=== PATIENT | female | born 1945 | race Caucasian/White ===

== ENCOUNTER 2023-08-25 10:29 | Emergency (ER) | payer BC, SELFPAY ==
[2023-08-25 10:31] VITALS: BP 162/83
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
== END 2023-08-25 13:19 | disposition home or self-care (01) ==
LOC: EMR 10:29
PROVIDERS: EMERGENCY PHYSICIAN Emergency Medicine; FAMILY PHYSICIAN Family Medicine; REFERRING PHYSICIAN Family Medicine
DX: M43.6 Torticollis (principal); G89.29 Other chronic pain; M54.2 Cervicalgia; I10 Essential (primary) hypertension; E11.9 Type 2 diabetes mellitus without complications
CPT/HCPCS: 99283; 72050

== ENCOUNTER 2023-09-05 06:16 | Day surgery (SDC) | payer BC, SELFPAY ==
--- NOTE | 2023-09-03 12:36 | PTCARENOTE ---
Verified with Chloe Billy @ Dr. Hinojosa office that an accucheck is to be done bedside vs FBS.
[2023-09-05] VITALS (8 sets, daily range): BP systolic 135–161; BP diastolic 73–89; BMI 20.8
[2023-09-05] MEDS: NORMOSOL-R 1000 IV (09:30)
[2023-09-05] MEDS: TYLENOL 1000 MG PO (09:30)
[2023-09-05 09:40] LABS: Glucose - Point of Care 161 mg/dl (70-99)
[2023-09-05 12:28] LABS: Glucose - Point of Care 99 mg/dl (70-99)
--- NOTE | 2023-09-05 22:58 | W.IMMPOSTOP ---
Surgical Immed Post Op Note
-
Primary Surgeon: Jian Senior, DO
Assisting Surgeon: none
Pre-op Diagnosis: Postmenopausal bleeding; thickened endometrial lining
Post-op Diagnosis: same; questionable small polyp
Procedure Performed: ultasound guided hysteroscopy D&C, myosure
Anesthesia Type: general LMA Dr. Duran
Specimen / Cultures: 1. endocervical curettings 2. endometrial curettings
Estimated Blood Loss: 1ml
Fluid deficit: 45 ml
Complications: none
Operative Findings: Uterus sounded to 5.5 cm, endometrial lining is thin, bilateral tubal ostia seen. Very small raised area of tissue ? small cyst vs polyp at fundus and also left side uterine body wall.
Counts correct times 2.
Stable to recovery.
== END 2023-09-05 13:50 | disposition home or self-care (01) ==
LOC: SDS 06:16
PROVIDERS: ATTENDING PHYSICIAN Obstetrics & Gynecology
DX: N72 Inflammatory disease of cervix uteri (principal); N95.0 Postmenopausal bleeding; R93.89 Abnormal findings on diagnostic imaging of other specified body structures
CPT/HCPCS: 58558; 88305; 76998; 82962; 86850; 86900; 86901

== ENCOUNTER 2023-09-06 22:04 | Inpatient (IN) | payer BC, SELFPAY ==
[2023-09-06] VITALS (9 sets, daily range): BP systolic 108–135; BP diastolic 47–73; BMI 21.2; BMI 20.8
[2023-09-06 15:39] LABS: % Basophils 0.2 % (0-2); % Immature Granulocytes 0.6 % (0-0.5); % Lymphocytes 4.8 % (20.5-51.1); % Neutrophils 92.4 % (42.2-75.2); Absolute Basophils 0.1 10^3/uL (0-0.2); Absolute Immature Granulocytes 0.2 10^3/uL (0-0.05); Absolute Lymphocytes 1.2 10^3/uL (1.2-3.4); Absolute Monocytes 0.5 10^3/uL (0.1-0.6); Absolute Neutrophils 23.6 10^3/uL (1.4-6.5); Hematocrit 29.9 % (37.0-47.0); Hemoglobin 10.4 g/dL (12.0-16.0); Mean Corp Hgb Conc. 34.8 g/dL (33.0-37.0); Mean Corpuscular Hgb 32.1 pg (27.0-31.0); Mean Corpuscular Volume 92.3 fL (81.0-99.0); Mean Platelet Volume 11.6 fL (7.4-10.4); Nucleated Red Blood Cells % 0 %; Platelet Count 200 10^3/uL (130-400); Red Blood Cell Count 3.24 10^6/uL (4.20-5.40); Red Cell Dist. Width 13.3 % (11.5-14.5); White Blood Cell Count 25.6 10^3/uL (4.8-10.8)
[2023-09-06 15:53] LABS: ALT (SGPT) 25 U/L (0-35); AST (SGOT) 27 U/L (14-36); Alkaline Phosphatase 123 U/L (38-126); Blood Urea Nitrogen 34 mg/dl (7-17); Calcium 9.2 mg/dl (8.4-10.2); Carbon Dioxide 24 mmol/L (22-30); Chloride 103 mmol/L (98-107); Glucose 274 mg/dl (70-99); Lipase 189 U/L (23-300); Potassium 3.9 mmol/L (3.5-5.1); Sodium 135 mmol/L (135-145); Total Bilirubin 0.6 mg/dl (0.2-1.3); Total Protein 6.9 g/dl (6.3-8.2); eGFR > 60.00
--- NOTE | 2023-09-06 18:30 | ED.GENMED ---
History of Present Illness
General
Chief Complaint: Abdominal Symptoms
Source: patient
Exam Limitations: none
Time Seen by Provider: 09/06/23 17:56
Travel History
Have you had any contact with someone who has COVID-19?: No
Do you have any symptoms of coronavirus? Fever > 100 degrees, chills, cough, shortness of breath, sore throat, loss of taste or smell, muscle aches, or headache?: No
History of Present Illness
History of Present Illness:
78-year-old female presents for evaluation for onset of shaking chills nausea and episode of vomiting. She had D&C and endometrial biopsy yesterday. She was doing well postoperatively and had breakfast this morning however after lunch she vomited
up her breakfast. She notes currently she feels quite fatigued. She denies abdominal pain chest pain cough or shortness of breath. Temperature at home was 99.9 although the patient taking Tylenol for her pain postoperatively. No symptoms
urinating. She notes minimal spotting if any from the surgery. No other complaints at this time
Past History
Past History
ED Past Medical History: HTN and NIDDM
ED Past Surgical History: Gynecological and Tonsilectomy
Social History
Tobacco: Non-smoker
Alcohol: None
Drug: None
Personal:
Living: with family
Phy Exam
Physical Exam
Physical Exam:
General: Well-appearing female no acute respiratory distress
HEENT: Normocephalic atraumatic
Heart: Regular rate and rhythm no murmurs
Lungs: Clear to auscultation bilaterally no wheezing
Abdomen is soft nontender
Extremities no cyanosis or edema
Course
Orders/Labs/Results
Orders:
Orders
09/06/23 15:16
Complete Blood Count/With Diff Urgent
Comprehensive Metabolic Panel Urgent
Lipase Urgent
09/06/23 18:23
0.9% Sodium Chloride 1000 ml [Nss] 1,000 ml IV BOLUS
09/06/23 18:27
Lactic Acid Q4H
Comment: CANCEL 2nd LACTIC ACID IF 1st LACTIC ACID IS LESS THAN 2
Blood Culture Q30M
MARIAJOSE Source: Blood/Venous
Specimen Description:
Blood Culture Q30M
MARIAJOSE Source: Blood/Venous
Specimen Description:
09/06/23 18:46
CT Abd/pelvis W Iv Cont Urgent
Comment:
Reason For Exam: fever, recent surgery, eval for perforation
09/06/23 20:00
Piperacillin/Tazo 3.375 Gram [Zosyn] 3.375 gram in 50 ml IV Q6H
09/06/23 20:24
Urinalysis Urgent
Date Specimen was Collected: 09/06/23
Time Specimen was Collected: 20:20
Urine Microscopic Urgent
Date Specimen was Collected: 09/06/23
Time Specimen was Collected: 20:20
Urine Culture Urgent
MARIAJOSE Source: Urine
Specimen Description:
Obtained by: Random
Date Specimen was Collected: 09/06/23
Time Specimen was Collected: 20:20
Abnormal Lab Results
09/06/23 09/06/23
15:16 20:24
WBC 25.6 H 10^3/uL
(4.8-10.8)
RBC 3.24 L 10^6/uL
(4.20-5.40)
Hgb 10.4 L g/dL
(12.0-16.0)
Hct 29.9 L %
(37.0-47.0)
MCH 32.1 H pg
(27.0-31.0)
MPV 11.6 H fL
(7.4-10.4)
Abs Immat Gran (auto) 0.2 H 10^3/uL
(0-0.05)
Absolute Neuts (auto) 23.6 H 10^3/uL
(1.4-6.5)
Immature Gran % 0.6 H %
(0-0.5)
Neutrophils % 92.4 H %
(42.2-75.2)
Lymphocytes % 4.8 L %
(20.5-51.1)
BUN 34 H mg/dl
(7-17)
Glucose 274 H mg/dl
(70-99)
Urine Ketones 1+ A
(Negative)
Urine Occult Blood 4+ A
(Negative)
Urine Nitrite Positive A
(Negative)
Ur Leukocyte Esterase 2+ A
(Negative)
Urine Glucose 3+ A
(Negative)
09/06/23 15:16
09/06/23 15:16
Vital Signs
Initial and Last Documented VS:
Initial Vital Signs
Temp
97.9 F
09/06/23 15:07
Last Documented Vital Signs
Temp Pulse Resp BP Pulse Ox
97.9 F 95 18 128/57 99
09/06/23 15:07 09/06/23 20:30 09/06/23 20:30 09/06/23 20:22 09/06/23 20:12
MDM/Problems Addressed
Differential Diagnosis Includes:
Rigors with vomiting. Slightly tachycardic. She has leukocytosis with a white blood cell count of 25,000. Consider underlying infectious source. Will check urine blood cultures labs. Recent surgery. Have to consider potential for perforation.
CT pending. Lungs are clear 100% on room air not coughing. Do not suspect pneumonia
*Critical Care Note
Total Time (30-74mins, 75-104mins- exclusive of procedures): Not Applicable
Update Note
Update Note:
Discussed findings with SOLUTION MAKE UP OPERATOR who is currently in the room. Obtain CT scan of abdomen to evaluate for infectious source or perforation. CT shows enteritis but no perforation. She was given a liter of fluid here started on Zosyn. Urinalysis
ordered. Mid to hospitalist
ED Attending Note
-
Portions of this chart may have been created with voice recognition software.� Occasional wrong word or��sound alike� substitutions may have occurred due to the inherent limitations of voice recognition software.
Discharge Plan
Departure
Patient Disposition: Admit
Date of Disposition: 09/06/23
Time of Disposition: 20:45
Admit to: Telemetry
Presentation/result/management discussed w/ accepting MD/DO: Hospitalist
Discharge Problem:
Enteritis
Prescriptions:
No Action
aspirin 81 MG tablet,chewable
81 mg PO DAILY
coQ10 (ubiquinol) 100 MG capsule
100 mg PO DAILY
atorvastatin 20 MG tablet
20 mg PO QPM Qty: 90 3RF
nitroglycerin 0.4 MG tablet, sublingual
0.4 mg sublingual [id number] PRN (Reason: chest pain) Qty: 25 2RF
glipizide [Glucotrol XL] 10 mg Tablet Extended Release 24hr
10 mg PO BID
repaglinide [Prandin] 0.5 mg Tablet
0.5 mg PO TID
cholecalciferol (vitamin D3) [Vitamin D3] 125 mcg (5,000 unit) Tablet
125 mcg PO DAILY
dapagliflozin propanediol [Farxiga] 5 mg Tablet
5 mg PO DAILY
Fish Oil
1 dose PO DAILY
misoprostol 200 mcg Tablet
PO DIRECTED
Patient Comments:
Patient took one on 09/04/23 @ 20:00.
Referrals:
Vipin Rodriguez DO [Family Provider] -
Interventions
Interventions:
*Risk Screen - Suicide Last Done: 09/06/23 18:37
*General Assessment Last Done: 09/06/23 18:37
*Neglect/Abuse Screening Last Done: 09/06/23 18:37
*ED COVID-19 Vaccine History Last Done: 09/06/23 15:09
QA-Wvsjvy-Gvujvnzcda Assessment Last Done: 09/06/23 18:37
Discharge Date and Time
Print Language: THAI
[2023-09-06] MEDS: NSS 1000 IV ×2 (18:38→23:09)
[2023-09-06 18:52] LABS: Lactic Acid 1.7 mmol/L (0.7-2.0)
[2023-09-06] MEDS: ZOSYN 50 IV (20:21)
[2023-09-06 20:39] LABS: Urine Albumin Trace (Neg - Trace); Urine Bilirubin Negative (Negative); Urine Character Slightly Cloudy (Clear); Urine Color Straw; Urine Glucose 3+ (Negative); Urine Ketone 1+ (Negative); Urine Leukocyte 2+ (Negative); Urine Nitrite Positive (Negative); Urine Occult Blood 4+ (Negative); Urine Urobilinogen Negative (Neg - 1+)
[2023-09-06 20:51] LABS: Urine Squamous Cell 0-2 /LPF (Few)
[2023-09-06 20:52] LABS: Urine Bacteria Moderate (Negative)
[2023-09-06 20:53] LABS: Urine White Cell 30-40 /HPF (0-5)
--- NOTE | 2023-09-06 21:10 | HPS.HSE ---
Family Physician
-
Family Physician: Vipin Rodriguez
Chief Complaint
-
Rigors and vomiting
History of Present Illness
HPI
78F seen at ER for reported T 99 at home with new onset of rigors and vomiting today.
On 09/05/23 , she D&C and endometrial biopsy at . She notes minimal spotting if any from the surgery.
USOH till lunch, she tolerated breakfast this morning, than acute onset of vomiting breakfast around lunch time.
ROS:
No abdominal pain, chest pain cough or shortness of breath.
No urinary symptoms
Medical History
Past Medical History
Past Medical History: Reports HTN, Hypercholesterolemia and NIDDM
Past Surgical History: Reports Gynocological and Tonsilectomy
Social History
Tobacco: Non-smoker
Alcohol: None
Drug: None
Personal:
Living: With Family
Family History
Family History: Not pertinent
Allergies / Home Medications
Allergies reflects when Allergies were last updated in [facility].
Home Medications with original date entered in [facility]
Allergy/Medication List:
Allergies
Allergy/AdvReac Type Severity Reaction Status Date / Time
ciprofloxacin Allergy Rash Verified 09/06/23 15:09
Home Medications
aspirin 81 mg chewable tablet 81 mg PO DAILY 05/10/16
atorvastatin 20 mg tablet 20 mg PO QPM #90 tabs 05/10/16
coQ10 (ubiquinol) 100 mg capsule 100 mg PO DAILY 05/10/16
nitroglycerin 0.4 mg sublingual tablet 0.4 mg sublingual [id number] PRN chest pain #25 tabs 05/10/16
Fish Oil 1 dose PO DAILY 09/03/23
cholecalciferol (vitamin D3) 125 mcg (5,000 unit) tablet (Vitamin D3) 125 mcg PO DAILY 09/03/23
dapagliflozin propanediol 5 mg tablet (Farxiga) 5 mg PO DAILY 09/03/23
glipizide 10 mg tablet, extended release 24 hr (Glucotrol XL) 10 mg PO BID 09/03/23
repaglinide 0.5 mg tablet 0.5 mg PO TID 09/03/23
misoprostol 200 mcg tablet mcg PO DIRECTED 09/05/23
Review of Systems
-
Constitutional: Reports Fatigue and Chills
EENT: Reports No Symptoms
Respiratory: Reports No Symptoms
Cardiac: Reports No Symptoms
Abdomen/GI: Reports Vomiting
: Reports No Symptoms; Denies Dysuria, Frequency or Flank Pain
Musculoskeletal: Reports No Symptoms
Skin: Reports No Symptoms
Neurological: Reports No Symptoms
Endocrine: Reports No Symptoms
Hematologic/Lymphatic: Reports No Symptoms
Psych: Reports No Symptoms
Physical Exam
Vital Signs
Vital Signs
Temp Pulse Resp BP Pulse Ox
97.9 F 95 18 128/57 99
09/06/23 15:07 09/06/23 20:30 09/06/23 20:30 09/06/23 20:22 09/06/23 20:12
Physical Exam
General: No Apparent Distress, Comfortable, Conversant and Other; No Fever
HEENT: NormoCephalic, Anicteric and Moist mucous membranes
Respiratory: Clear; No Wheezes or Rales
Cardiac: S1/S2 and Regular Rhythm; No Murmur
Breast: Deferred by me
GI: Soft, Non Distended, Normal Bowel Sounds and Tender (mildly tender lower abdomen )
Rectal: Deferred by Provider
Genito-urinary: Deferred by me
Musculoskeletal: No Edema
Skin: Warm and Dry; No Rash or Jaundice
Neuro: AO x 3 and Nonfocal/grossly intact
Psych: Calm
Laboratory Results
-
09/06/23 15:16
09/06/23 15:16
Laboratory Results
Lactic Acid Cancelled 09/06/23 22:30
Total Bilirubin 0.6 mg/dl (0.2-1.3) 09/06/23 15:16
AST 27 U/L (14-36) 09/06/23 15:16
ALT 25 U/L (0-35) 09/06/23 15:16
Alkaline Phosphatase 123 U/L (38-126) 09/06/23 15:16
Lipase 189 U/L (23-300) 09/06/23 15:16
Data Reviewed
-
CT Scan: Report Reviewed by me
Lab Data: Labs Reviewed by me
Old Records: Reviewed
Impression/Plan
-
Reviewed VS: Afebrile otherwise unremarkable
Data
WCC 25s
Hgb 10.4
BUN 34
Cr 0.7
eGFR > 60
BG 275
nl LFTs
UA: POS Nitrites, POS LE, WCC 30-40
UCx , BCx sent
CT AP w IV contrast
1. No CT evidence for acute uterine perforation.
2. 1.6 cm calcified leiomyoma in the uterine fundus.
3. 2.8 cm simple cyst in the left adnexa.
4. Moderate distention of the urinary bladder.
5. Mild distention, wall thickening, and mucosal enhancement throughout ileal small bowel loops in the central lower abdomen and pelvis. Diagnostic possibilities are (1) a postoperative ileus or (2) an acute infectious or inflammatory enteritis.
6. Severe calcific atherosclerotic plaque in the proximal left renal artery causing a greater than 70% diameter stenosis.
7. Severe calcific atherosclerotic plaque in the abdominal aorta.
8. 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
9. Moderate distention of the portal venous system consistent with portal hypertension.
10. Small hiatal hernia.
11. Small to moderate-sized pericardial effusion.
01/19/18 TTE
Normal left ventricular size, wall thickness and systolic function.
Normal right ventricular size and function.
No significant valvular disease.
Trivial pericardial effusion without evidence of hemodynamic compromise.
Overall, Normal echocardiogram.
Compared to the previous echo 01/03/17 the pericardial effusion is less prominent (was 0.4-1.0 cm).
No prio hospitalist admission
ASSESSMENT & PLAN
Pending Rx reconciliation
CT questions of an acute infectious or inflammatory enteritis DDX : viral ?
Associated with onset of rigors , afebrile at ER
Vomiting plus Leucocytosis : No diarrhea, No nausea
S/p endometrial biopsy with d/c yesterday by Dr. Macario
- f/u T, WCC
- f/u UCx and BCx
- Empiric Zosyn
- IVF
- Clear and adat
Significant pyuria without any urinary symptoms
Moderate distention of the urinary bladder
- Held Dapagliflozin
- f/u UCx
- Bladder scan
On 09/05/23 , she D&C and endometrial biopsy at .
No CT evidence for acute uterine perforation.
- Gynae evaluated at ER
DMT2
- Held Glipizide
- Dapagliflozin due to abn UA
- cont. Prandin
- add ISS low
HLD
-cont Statin
- Held ASA due to Enteritis
DVT Px: SCD
Code: Full
IP MS
--- NOTE | 2023-09-06 22:53 | CON.MD ---
Consultation - Medical
-
78 yo MP female presented to ER [facility] after having uncontrollable shaking and feeling like she could not get warm. Had temp 100 at home. HX significant for hysteroscopy D&C yesterday performed under ultrasound guidance by me for postmenopausal
bleeding and thickened endometrial lining. Surgery was uneventful. Findings suggestive of tiny endometrial cyst vs tiny polyp but otherwise unremarkable. She denies any heavy bleeding or urinary complaints. Had some nausea and vomiting earlier
today, no diarrhea. She is diabetic. Accompanied by her , daughter, Dr. Nicky Torres, daughter Marsha and son-in-law Dr. Zheng Torres.
PMH: diabetes, postmenopausal bleeding, uterine prolapse, cystocele, rectocele, cardiac stent placement for CAD
PSH: hysteroscopy D&C x 3, cardiac stent placement, hyperlipdemia
ALL cipro
Meds:
lipitor 20mg daily
glipizide 10mg daily
aspirin 81 mg daily
farxiga 10mg daily
Sochx: , neg Tobacco, etoh, drug use
Famhx; noncontributory
ROS: does not add
PE: VSS Temp 98.4 pulse 105
abd: soft + mild tenderness diffusely no rebound or rigidity
pelvic exam not performed in ED
CT imaging: severe calcific atherosclerotic plaque in proximal left renal artery with >70% stenosis, aneurysm dilatation of distal celiac artery. Small hiatal hernia. Mild fluid distension of second and proximal third portions of duodenum. Small
pericardial effusion.
Pelvis: mild fluid distension of small bowel loops in lower abdomen and pelvis. Mild mucosal thickening throughout the distended ileal small bowel loops. Appendix and termial ilium normal appearance. Moderate fecal material in rectum and transverse
and descending colon.
No CT evidence for acute uterine perforation. 1.6 cm calcified fibroid. 2.8cm left adnexal cyst.
WBC 25K hgb 10.4
lactic acid normal
urinalysis +nitrites, moderate bacteria
Impression:
1. POD#1 s/p hysteroscopy D&C performed due to recent postmenopausal bleeding-path pending.
2. Enteritis vs postop ileus- inflammatory or infectious possible.
3. Postop leukocytosis
4. UTI
5. left adnexal cyst
6. diabetes
7. atherosclerosis
8. hiatal hernia
Plan: Do not suspect leukocytosis or enteritis is related to her surgery given that surgery was only yesterday and this would be extremely early to have developed infection this quickly. Recommend IV abx for possible enteritis as well as UTI. Of
note, pt was not catheterized as part of her hysteroscopy procedure yesterday. await urine culture.
Awaiting path from surgery
Left ovarian cyst noted on pelvic US preop- CA125 was normal (performed as outpt recently). This can be monitored with follow up Ultrasound as outpt.
Diabetes mgmt per primary service.
Discussed with patient and family. Questions answered.
[2023-09-07] MEDS: ZOSYN 50 IV ×4 (01:56→19:32)
--- NOTE | 2023-09-07 04:46 | PTCARENOTE ---
Received pt from ED, AAOx3, no complaints of pain- IVF as ordered
[2023-09-07] MEDS: ZOFRAN 4 MG IV (06:11)
[2023-09-07] MEDS: TYLENOL 650 MG PO ×3 (06:15→19:32)
[2023-09-07 07:27] VITALS: BP 110/43
[2023-09-07 08:02] LABS: Hematocrit 26.3 % (37.0-47.0); Hemoglobin 9.1 g/dL (12.0-16.0); Mean Corp Hgb Conc. 34.6 g/dL (33.0-37.0); Mean Corpuscular Hgb 32.4 pg (27.0-31.0); Mean Corpuscular Volume 93.6 fL (81.0-99.0); Mean Platelet Volume 11.9 fL (7.4-10.4); Platelet Count 179 10^3/uL (130-400); Red Blood Cell Count 2.81 10^6/uL (4.20-5.40); Red Cell Dist. Width 13.5 % (11.5-14.5)
[2023-09-07 08:43] LABS: ALT (SGPT) 26 U/L (0-35); AST (SGOT) 36 U/L (14-36); Albumin 3.1 g/dl (3.5-5.0); Alkaline Phosphatase 89 U/L (38-126); Amylase 45 U/L (30-110); Blood Urea Nitrogen 25 mg/dl (7-17); Calcium 8.3 mg/dl (8.4-10.2); Chloride 104 mmol/L (98-107); Estimated Creatinine Clearance 56 ml/min; Glucose 95 mg/dl (70-99); Lipase 60 U/L (23-300); Potassium 3.5 mmol/L (3.5-5.1); Sodium 134 mmol/L (135-145); Total Bilirubin 0.8 mg/dl (0.2-1.3); Total Protein 5.8 g/dl (6.3-8.2); eGFR > 60.00
[2023-09-07] MEDS: NOVOLOG FLEXPEN-LOW RESISTANCE SC ×2 (08:51→11:46)
[2023-09-07 08:52] LABS: Glucose - Point of Care 97 mg/dl (70-99)
[2023-09-07 08:52] LABS: Carbon Dioxide 21 mmol/L (22-30)
[2023-09-07] MEDS: HEPARIN 5000 UNITS SC ×2 (08:53→19:32)
--- NOTE | 2023-09-07 09:02 | CON.GI ---
Consultation
-
Date/Time Consultation Performed: 09/07/23
Performing Provider: Michael Mcgill MD
Reason for Consultation: vomiting, enteritis
Medical History
Chief Complaint / HPI
Chief Complaint: Rigors, vomiting
History of Present Illness:
The patient is a 78-year-old female with past medical history as noted who presents with rigors and vomiting. She underwent hysteroscopy with D&C on Friday, and then yesterday developed rigors and vomiting. She presents to the emergency room with
significant leukocytosis, initially white count was 25 up to 35 today and low-grade temperature though no documented fever. CT scan showed no perforation, some mild distention of the urinary bladder, along with mild distention wall thickening of
the ileum. Throughout this she never had any severe abdominal pain. She has had no issues like this previously and usually has no GI issues. She has had procedures with GI in [place] which have been unremarkable including colonoscopy endoscopy
by report. Currently she is feeling a little bit better, denies any vomiting or severe abdominal pain.
Past Medical History
Past Medical History: Other (diabetes, postmenopausal bleeding, uterine prolapse, cystocele, rectocele, cardiac stent placement for CAD)
Past Surgical History: Other (hysteroscopy D&C x 3)
Social History
Tobacco: Non-Smoker
Alcohol: None
Family History
Family History: Reviewed & Not Pertinent
Allergies / Home Medications
Allergy/AdvReac Type Severity Reaction Status Date / Time
ciprofloxacin Allergy Rash Verified 09/06/23 15:09
�Medication �Instructions �Recorded
aspirin 81 mg chewable tablet 81 mg PO DAILY 05/10/16
atorvastatin 20 mg tablet 20 mg PO QPM #90 tabs 05/10/16
coQ10 (ubiquinol) 100 mg capsule 100 mg PO DAILY 05/10/16
nitroglycerin 0.4 mg sublingual 0.4 mg sublingual [id number] PRN 05/10/16
tablet chest pain #25 tabs
Fish Oil 1 dose PO DAILY 09/03/23
cholecalciferol (vitamin D3) 125 125 mcg PO DAILY 09/03/23
mcg (5,000 unit) tablet (Vitamin
D3)
dapagliflozin propanediol 5 mg 5 mg PO DAILY 09/03/23
tablet (Farxiga)
glipizide 10 mg tablet, extended 10 mg PO BID 09/03/23
release 24 hr (Glucotrol XL)
repaglinide 0.5 mg tablet 0.5 mg PO TID 09/03/23
misoprostol 200 mcg tablet 200 mcg PO DIRECTED 09/05/23
Review of Systems
-
All other systems: A 12 pt ROS was Negative except as stated above in HPI
Vital Signs
Temp Pulse Resp BP Pulse Ox
100.8 F H 94 17 110/43 96
09/07/23 07:27 09/07/23 07:27 09/07/23 07:27 09/07/23 07:27 09/07/23 07:27
Physical Exam
Exam
General: NAD
HEENT: MMM, anicteric, no lymphadenopathy
Heart: Regular, no murmurs
Lungs: CTA bilaterally
Abdomen: normal bowel sounds, soft, no tenderness, no rebound or guarding, no masses, bruits or ascites
Extremeties: no edema
Skin: no rashes
Results
WBC 35.0 10^3/uL (4.8-10.8) H 09/07/23 06:56
Hgb 9.1 g/dL (12.0-16.0) L 09/07/23 06:56
Hct 26.3 % (37.0-47.0) L 09/07/23 06:56
MCV 93.6 fL (81.0-99.0) 09/07/23 06:56
Plt Count 179 10^3/uL (130-400) 09/07/23 06:56
Absolute Neuts (auto) 23.6 10^3/uL (1.4-6.5) H 09/06/23 15:16
Sodium 134 mmol/L (135-145) L 09/07/23 06:56
Potassium 3.5 mmol/L (3.5-5.1) 09/07/23 06:56
Chloride 104 mmol/L (98-107) 09/07/23 06:56
Carbon Dioxide 21 mmol/L (22-30) L 09/07/23 06:56
BUN 25 mg/dl (7-17) H 09/07/23 06:56
Creatinine 0.8 mg/dL (0.6-1.0) 09/07/23 06:56
Calcium 8.3 mg/dl (8.4-10.2) L 09/07/23 06:56
Total Bilirubin 0.8 mg/dl (0.2-1.3) 09/07/23 06:56
AST 36 U/L (14-36) 09/07/23 06:56
ALT 26 U/L (0-35) 09/07/23 06:56
Alkaline Phosphatase 89 U/L (38-126) 09/07/23 06:56
Amylase 45 U/L (30-110) 09/07/23 06:56
Lipase 60 U/L (23-300) 09/07/23 06:56
Diagnostic Image Results:
CT:
IMPRESSION:
1. No CT evidence for acute uterine perforation.
2. 1.6 cm calcified leiomyoma in the uterine fundus.
3. 2.8 cm simple cyst in the left adnexa.
4. Moderate distention of the urinary bladder.
5. Mild distention, wall thickening, and mucosal enhancement throughout ileal small bowel loops in the central lower abdomen and pelvis. Diagnostic possibilities are (1) a postoperative ileus or (2) an acute infectious or inflammatory enteritis.
6. Severe calcific atherosclerotic plaque in the proximal left renal artery causing a greater than 70% diameter stenosis.
7. Severe calcific atherosclerotic plaque in the abdominal aorta.
8. 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
9. Moderate distention of the portal venous system consistent with portal hypertension.
10. Small hiatal hernia.
11. Small to moderate-sized pericardial effusion.
Prior GI Procedures:
EGD:
Colonoscopy:
Assessment / Plan
-
1. Regular/vomiting: With significant leukocytosis, though really no abdominal pain or tenderness on exam. She does have some mild distention and thickening of ileal loops, likely mild ileus after sedation, again without any significant pain or
tenderness. She does have other vascular disease with multiple calcifications on CT scan, though again ischemia seems unlikely given lack of pain and tenderness. Without diarrhea infectious enteritis seems very unlikely. If she were to develop
diarrhea we will check stool studies. UA is positive, and could have UTI accounting for her rigors and leukocytosis. At this point will await blood cultures and urine culture, continue supportive care with clear quick diet and antibiotics and will
trend abdominal exam.
-
-
Thank you for consultation and allowing me to participate in the patient's care. Please call the aviation electrical technician GI physician during the after hours with any questions or concerns.
--- NOTE | 2023-09-07 09:29 | W.PN.HOSP.TC ---
Today's Communication/Plan
-
see outlined plan
Assessment / Plan
Assessment / Plan
Assessment:
Sepsis POA (fever, leucocytosis, tachycardia, UTI)
UTI
- no physical exam or CT evidence of pyelonephritis; CT did show moderate distention of the urinary bladder
- was not cathed for recent [facility]ICK [facility]IL[facility] BURNER procedure
- could be related to recently initiated SGLT2 inhibitor
- continue empiric Zosyn, pending culture data
- consider x1 dose of Gent
- continue sepsis protocol IVF
- check bladder scans
ileal small bowel loops with distention, thickening on exam
- GI consulted
- more likely felt to be ileus post-sedation rather than enteritis with lack of significant abd pain
- started on clears
- watch for diarrhea; if present, send stool studies
- serial abd exams
post-menopausal bleeding
L ovarian cyst
- s/p D&C on 09/04; biopsies pending
- CT without evidence of uterine perforation
- [facility]IL[facility] BURNER following
type 2 DM
- hold
DMT2
- hold Glipizide
- hold SGLT2 inhibitor
- continue SSI
- A1c: pending
HLD
- cont Statin
DVT ppx: SC heparin
Code: Full
Anticipated Discharge: > 48 hours
Subjective/Interval History
-
Date of Service: September 07, 2023
mild Left sided abd pain, no n/v
started on clears as per GI
denies any other complaints
recently started SGLT2
Objective Data
-
Labs:
Laboratory Results
09/07/23
06:56
WBC 35.0 H
Hgb 9.1 L
Hct 26.3 L
Plt Count 179
Sodium 134 L
Potassium 3.5
Chloride 104
Carbon Dioxide 21 L
BUN 25 H
Creatinine 0.8
Glucose 95
Calcium 8.3 L
Total Bilirubin 0.8
AST 36
ALT 26
Alkaline Phosphatase 89
Vital Signs:
Vital Signs
Temp Pulse Resp BP Pulse Ox
100.8 F H 94 17 110/43 96
09/07/23 07:27 09/07/23 07:27 09/07/23 07:27 09/07/23 07:27 09/07/23 07:27
I&O
09/06/23 09/07/23 09/08/23
06:59 06:59 06:59
Intake Total 480 / 480
Balance 480 / 480
Physical Exam
-
General: No Apparent Distress
HEENT: Normocephalic and Atraumatic
Respiratory: Negative Wheezes or Rales
Cardiac: Regular Rhythm and S1/S2
GI: Soft and Tender (very mild, LLQ)
Genito-urinary: No Costovertebral Tender
Neuro: AO x 3
Hematologic / Lymphatic: No Lymphadenopathy
Psych: Calm
Data Reviewed
-
Total Time Spent with Patient (in minutes): 52
Labs: Labs Reviewed by me
[2023-09-07] MEDS: NSS 1000 IV ×2 (10:22→21:19)
[2023-09-07 10:36] LABS: Glycohemoglobin (HgbA1c) 10.1 % (4.0-5.6)
--- NOTE | 2023-09-07 10:45 | CON.CAR ---
Consultation
Consultation Request
Date/Time Consultation Requested: 09/07/23
Date/Time Consultation Performed: 09/07/23
Requesting Provider: Dr Díaz
Performing Provider: Dr Davidson ( Primary cards: Luigi Agosto)
Reason for Consultation: pericardial effusion
Medical History
-
Chief Complaint: fever
History of Present Illness:
78-year-old female with a past medical history of CAD status post PCI to the LAD, hypertension, [id number] diabetes, hyperlipidemia and pericardial effusion presented to the ED for new onset fever and vomiting on 09/06/2023. Of note,
patient had a D&C and endometrial biopsy on 09/05/2023. When she presented she had a leukocytosis, fever and low-grade fever. CT scan of the abdomen was done given recent procedure and nausea showing no perforation of the uterus, mild distention
wall thickening and enhancement of the ileal small bowel loops could be secondary for postoperative ileus and acute infectious or inflammatory enteritis. A small to moderate-sized pericardial effusion was seen. Small hiatal hernia. Coronary
artery calcification seen. Of note there was a severe calcific plaque in the proximal left renal artery causing greater than 70% stenosis. We are asked to comment on the pericardial effusion. Currently she is being treated for urosepsis. She is
feeling better, some rigors overnight. She has no cp or sob. No palpitatation.
Past Medical History
Past Medical History: CAD (LAD PCI 2015), HTN, Hypercholesterolemia, NIDDM and Other (Right bundle branch block, pericardial effusion (echo 09/2021 remains small without any change))
Past Surgical History: Gynecological (Status post D&C 09/05/2023)
Social History
Tobacco: Non-Smoker
Family History
Family History: Reviewed & Not Pertinent
Allergies / Home Medications
Allergy/AdvReac Type Severity Reaction Status Date / Time
ciprofloxacin Allergy Rash Verified 09/06/23 15:09
�Medication �Instructions �Recorded �Confirmed �Type
aspirin 81 mg chewable tablet 81 mg PO DAILY 05/10/16 09/07/23 History
atorvastatin 20 mg tablet 20 mg PO QPM #90 tabs 05/10/16 09/07/23 Rx
coQ10 (ubiquinol) 100 mg capsule 100 mg PO DAILY 05/10/16 09/07/23 History
nitroglycerin 0.4 mg sublingual 0.4 mg sublingual [id number] PRN 05/10/16 09/07/23 Rx
tablet chest pain #25 tabs
Fish Oil 1 dose PO DAILY 09/03/23 09/07/23 History
cholecalciferol (vitamin D3) 125 125 mcg PO DAILY 09/03/23 09/07/23 History
mcg (5,000 unit) tablet (Vitamin
D3)
dapagliflozin propanediol 5 mg 5 mg PO DAILY 09/03/23 09/07/23 History
tablet (Farxiga)
glipizide 10 mg tablet, extended 10 mg PO BID 09/03/23 09/07/23 History
release 24 hr (Glucotrol XL)
repaglinide 0.5 mg tablet 0.5 mg PO TID 09/03/23 09/07/23 History
misoprostol 200 mcg tablet 200 mcg PO DIRECTED 09/05/23 09/07/23 History
Review of Systems
-
All other systems: Negative unless noted
Physical Exam
Vital Signs
Temp Pulse Resp BP Pulse Ox
100.8 F H 94 17 110/43 96
09/07/23 07:27 09/07/23 07:27 09/07/23 07:27 09/07/23 07:27 09/07/23 07:27
Lab Results
09/07/23 06:56
09/07/23 06:56
Physical Exam
General: Well Developed, Well Nourished and No Apparent Distress
Respiratory: Clear, Wheezes (none), Crackles (none) and Rhonchi (none)
Cardiac: S1/S2, Regular Rhythm and Murmur (none)
GI: Soft and Non Tender
Musculoskeletal: No Clubbing, No Cyanosis and No Edema
Neuro: AO x 3
Impression / Plan
-
#Sepsis: Likely urologic source, care per medicine
#Pericardial effusion:known chronic small effusion. On my measurement of the effusion on CT scan I get 9 mm. This would be some consistent with her small effusion that is known. However, this is not a gated study. Therefore we will update her
echo tomorrow. Currently there is no hemodynamic importance of this finding.
#CAD: Remote PCI stenting, continue aspirin and statin
-this SHOULD not be held unless extremely high bleeding risk.
#RBB: chronic
#DM2 chronic
#HLD chronic
Of note, her daughter is Dr Torres local PCP
Data Reviewed
-
EKG: Tracing Personally Visualized and interpreted (NSR with rbbb)
CT Scan: Image Personally Visualized and interpreted (On my review of the CT scan, the biggest pocket of effusion I measure is 9 mm.)
[2023-09-07] MEDS: GENTAMICIN 52.5 MG IV (11:39)
[2023-09-07] MEDS: LOW STRENGTH ASPIRIN 81 MG PO (11:44)
[2023-09-07 11:47] LABS: Glucose - Point of Care 90 mg/dl (70-99)
--- NOTE | 2023-09-07 13:22 | W.PN.OBG.DWH ---
Today's Communication / Plan
-
continue IV abx and await cultures
Assessment/Plan
-
1. postmenopausal bleeding: s/p hysteroscopy D&C 09/05/23. Op findings revealed possible tiny cyst/polyp, otherwise unremarkable.Path pending.
2. Postop fever and leukocytosis:
-etiologies include UTI, enteritis, sepsis. Urine and blood cultures are pending. I do not suspect gynecologic cause. I did discuss case today with Dr. Díaz.
I will follow along. Discussed with pt and .
Subjective Data
-
Pt feeling tired but otherwise ok. Denies CP, SOB, dysuria. Did have fever, chills this am. No cough.
No vaginal bleeding or discharge. No abdominal pain.
Objective Data
-
Laboratory Results
09/07/23 06:56
09/07/23 06:56
Vital Signs
Temp Pulse Resp BP Pulse Ox
99.4 F 94 17 110/43 96
09/07/23 11:55 09/07/23 07:27 09/07/23 07:27 09/07/23 07:27 09/07/23 07:27
VSS T 100.8 06:30 this am and 100.8 @ 07:27 today Tc 99.4
Cor regular rate
Pulm: clear b/l
ABd: soft +bs ND mildly tender with palpation lower abdomen generally. No guarding or rebound
Ext: no calf pain
WBC increased to 35K today
urine and blood cultures pending
CXR neg pneumonia, dilated small bowel loops
--- NOTE | 2023-09-07 14:41 | PTCARENOTE ---
fever of 102.2, pt given tylenol, will recheck.
[2023-09-07 15:20] VITALS: BP 130/67
[2023-09-07 16:53] LABS: Glucose - Point of Care 204 mg/dl (70-99)
[2023-09-07] MEDS: NOVOLOG FLEXPEN-LOW RESISTANCE 2 UNITS SC (17:18)
[2023-09-07 20:53] LABS: Hematocrit 25.7 % (37.0-47.0); Hemoglobin 9.3 g/dL (12.0-16.0); Mean Corp Hgb Conc. 36.2 g/dL (33.0-37.0); Mean Corpuscular Hgb 32.6 pg (27.0-31.0); Mean Corpuscular Volume 90.2 fL (81.0-99.0); Mean Platelet Volume 11.2 fL (7.4-10.4); Platelet Count 165 10^3/uL (130-400); Red Blood Cell Count 2.85 10^6/uL (4.20-5.40); Red Cell Dist. Width 13.9 % (11.5-14.5); White Blood Cell Count 26.2 10^3/uL (4.8-10.8)
[2023-09-07 21:05] LABS: Blood Urea Nitrogen 25 mg/dl (7-17); Calcium 8.1 mg/dl (8.4-10.2); Carbon Dioxide 24 mmol/L (22-30); Chloride 102 mmol/L (98-107); Estimated Creatinine Clearance 45 ml/min; Glucose 98 mg/dl (70-99); Potassium 3.4 mmol/L (3.5-5.1); Sodium 131 mmol/L (135-145); eGFR 57.31
[2023-09-07 21:22] LABS: Glucose - Point of Care 122 mg/dl (70-99)
[2023-09-07] MEDS: CALDOLOR 104 MG IV (23:13)
[2023-09-07 23:24] VITALS: BP 103/43
[2023-09-08] MEDS: KCL 40 MEQ PO (00:04)
[2023-09-08 00:19] LABS: Magnesium 1.7 mg/dl (1.6-2.3)
[2023-09-08] MEDS: ZOSYN 50 IV ×4 (01:43→20:31)
--- NOTE | 2023-09-08 06:19 | W.PN.GI.CBS2 ---
Today's Communication / Plan
-
See assessment and plan for details.
Assessment / Plan
-
1. Fever/vomiting: With significant leukocytosis, though really no abdominal pain or tenderness on exam. She does have some mild distention and thickening of ileal loops, likely mild ileus. Enteritis whether infectious or ischemic seems unlikely
given lack of diarrhea, pain and tenderness. Her fever is unlikely GI source given exam, possibly more related to UTI. Blood cultures negative so far though await final cultures as well as urine culture. Continue supportive care for now. Will
advance to full liquid diet for now.
Subjective
Subjective
Date of Service: September 08, 2023
Patient still having significant fevers up to 102, though no other specific complaints. Still no significant abdominal pain, tolerated clears that difficulty, no vomiting, no diarrhea. Chest x-ray yesterday was negative, though did show some
mildly dilated small bowel loops.
Objective
Data Reviewed
Laboratory Data:
Laboratory Results
Magnesium 1.7 mg/dl (1.6-2.3) 09/07/23 20:37
Total Bilirubin 0.8 mg/dl (0.2-1.3) 09/07/23 06:56
AST 36 U/L (14-36) 09/07/23 06:56
ALT 26 U/L (0-35) 09/07/23 06:56
Alkaline Phosphatase 89 U/L (38-126) 09/07/23 06:56
Amylase 45 U/L (30-110) 09/07/23 06:56
Lipase 60 U/L (23-300) 09/07/23 06:56
Vital Signs and I&O:
Vital Signs
Temp Pulse Resp BP Pulse Ox
98.0 F 98 18 103/43 96
09/08/23 03:28 09/07/23 23:24 09/07/23 23:24 09/07/23 23:24 09/08/23 01:00
I&O
09/06/23 09/07/23 09/08/23
06:59 06:59 06:59
Intake Total 480 / 480 840 / 840
Balance 480 / 480 840 / 840
Physical Exam
Physical Exam
General: NAD
Abdomen: normal bowel sounds, mildly distended though soft, no tenderness, no masses or bruits, no ascites
[2023-09-08 07:18] LABS: % Basophils 0.3 % (0-2); % Immature Granulocytes 2.6 % (0-0.5); % Lymphocytes 6.5 % (20.5-51.1); % Monocytes 3.9 % (1.7-9.3); % Neutrophils 86.7 % (42.2-75.2); Absolute Basophils 0.1 10^3/uL (0-0.2); Absolute Immature Granulocytes 0.6 10^3/uL (0-0.05); Absolute Lymphocytes 1.5 10^3/uL (1.2-3.4); Absolute Monocytes 0.9 10^3/uL (0.1-0.6); Hematocrit 25.3 % (37.0-47.0); Hemoglobin 8.5 g/dL (12.0-16.0); Mean Corp Hgb Conc. 33.6 g/dL (33.0-37.0); Mean Corpuscular Hgb 32.3 pg (27.0-31.0); Mean Corpuscular Volume 96.2 fL (81.0-99.0); Mean Platelet Volume 11.8 fL (7.4-10.4); Nucleated Red Blood Cells % 0 %; Platelet Count 149 10^3/uL (130-400); Red Blood Cell Count 2.63 10^6/uL (4.20-5.40); Red Cell Dist. Width 14.1 % (11.5-14.5); White Blood Cell Count 23.1 10^3/uL (4.8-10.8)
[2023-09-08 08:48] LABS: Blood Urea Nitrogen 24 mg/dl (7-17); Calcium 8.2 mg/dl (8.4-10.2); Carbon Dioxide 24 mmol/L (22-30); Chloride 107 mmol/L (98-107); Estimated Creatinine Clearance 45 ml/min; Glucose 44 mg/dl (70-99); Potassium 3.5 mmol/L (3.5-5.1); Sodium 135 mmol/L (135-145); eGFR 57.31
[2023-09-08 09:39] LABS: Glucose - Point of Care 48 mg/dl (70-99)
[2023-09-08] MEDS: NOVOLOG FLEXPEN-LOW RESISTANCE SC (09:48)
[2023-09-08] MEDS: HEPARIN SC (09:49)
[2023-09-08 09:58] LABS: Glucose - Point of Care 61 mg/dl (70-99)
[2023-09-08 10:00] VITALS: BP 139/71
[2023-09-08] MEDS: NSS (PRESERVATIVE FREE) 10 ML IV (10:01)
[2023-09-08] MEDS: PROTONIX IV 40 MG IV (10:01)
[2023-09-08] MEDS: LOW STRENGTH ASPIRIN 81 MG PO (10:01)
[2023-09-08 10:21] LABS: Glucose - Point of Care 75 mg/dl (70-99)
--- NOTE | 2023-09-08 10:21 | W.PN.CD ---
Today's Communication / Plan
-
Stable pericardial effusion
No new recommendations at this time, we will sign off please call with questions/concerns
Impression / Plan
-
#Sepsis: Likely urologic source, care per medicine
#Pericardial effusion:confirmed no significant change from previous TTE
#New anemia: recently normal, now Hgb 8.5, possibly 2/2 sepsis
#CAD: Remote PCI stenting, continue aspirin and statin
-this SHOULD not be held unless extremely high bleeding risk.
#RBB: chronic
#DM2 chronic
#HLD chronic
Of note, her daughter is Dr Torres local PCP
Physical Exam
Vital Signs/Labs
Vital Signs
Temp Pulse Resp BP Pulse Ox
98.0 F 98 18 103/43 96
09/08/23 03:28 09/07/23 23:24 09/07/23 23:24 09/07/23 23:24 09/08/23 01:00
09/07/23 09/08/23 09/09/23
06:59 06:59 06:59
Actual Weight 136 lb 8 oz
09/08/23 06:53
09/08/23 06:53
Magnesium 1.7 mg/dl (1.6-2.3) 09/07/23 20:37
Physical Exam
Constitutional: No acute distress
EENT: Anicteric
Cardiovascular: Rhythm & rate is regular
Respiratory: Respiratory effort normal and Lungs clear to auscul.
GI: Soft
Neuro/Psych: AO x 3
Data Reviewed
-
Date of Service: September 08, 2023
EKG: Tracing Personally Visualized and interpreted
Echo: Tracing Personally Visualized and interpreted
Labs: Labs Reviewed by me (Hgb 8.5)
--- NOTE | 2023-09-08 11:26 | W.PN.HOSP.TC ---
Today's Communication/Plan
-
continue fluids (add dextrose) + IV Abx
full liquids
anemia workup, type/screen at 2pm. repeat HH 2pm
Assessment / Plan
Assessment / Plan
Assessment:
Sepsis POA (fever, leucocytosis, tachycardia, UTI)
UTI
- no physical exam or CT evidence of pyelonephritis; CT did show moderate distention of the urinary bladder
- was not cathed for recent PHARMACY INFORMATICIST procedure
- could be related to recently initiated SGLT2 inhibitor
- continue empiric Zosyn, day 2
- received 1 dose of Gent 09/06
- continue sepsis protocol IVF
- check bladder scans
ileal small bowel loops with distention, thickening on exam
- GI following
- more likely felt to be ileus post-sedation rather than enteritis with lack of significant abd pain
- advanced to fulls
- send stool studies with loose stools. Loose stools could represent opening ileus vs Abx side effects
- serial abd exams
Acute anemia
- multifactorial from recent vag bleeding, dilutional
- check anemia indices
- heme+ in loose stools per RN; GI aware
post-menopausal bleeding
L ovarian cyst
- s/p D&C on 09/04; biopsies pending
- CT without evidence of uterine perforation
- PHARM[employer]Y INFORMATICIST following
DMT2
- hold Glipizide
- hold SGLT2 inhibitor
- continue SSI
- A1c: 10.1%
HLD
- cont Statin
HX of pericardial effusion
CAD: Remote PCI stenting, continue aspirin and statin
- small per updated Echo
- continue ASA
- Cards signed off
Hyponatremia - improving with IVF
Hypokalemia
- KCL prn
HX of neck pain
- MRI without discitis
- showed:
1. 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 Severe right neural foraminal narrowing at C6/C7.
2. Small central disc herniations at C4/C5 and C5/C6 causing mild spinal cord compression.
3. 4 mm anterolisthesis of C5 on C6 secondary to severe left-sided facet joint arthrosis.
4. Moderate right-sided facet joint arthrosis at C3/C4 causing moderate right neural foraminal narrowing.
5. Small multilevel thoracic disc herniations causing mild spinal cord compression.
DVT ppx: SCDs
Code: Full
Anticipated Discharge: > 48 hours
Subjective/Interval History
-
Date of Service: September 08, 2023
hypoglycemia this AM to 44 - responded well to juice
WBC now down to 25 - E. Coli in UTI
loose stools this AM, RN reporting heme+
Objective Data
-
Labs:
Laboratory Results
09/08/23
06:53
WBC 23.1 H
Hgb 8.5 L
Hct 25.3 L
Plt Count 149
Sodium 135
Potassium 3.5
Chloride 107
Carbon Dioxide 24
BUN 24 H
Creatinine 1.0
Glucose 44 L*
Calcium 8.2 L
Vital Signs:
Vital Signs
Temp Pulse Resp BP Pulse Ox
97.8 F 78 16 139/71 96
09/08/23 10:00 09/08/23 10:00 09/08/23 10:00 09/08/23 10:00 09/08/23 10:00
I&O
09/07/23 09/08/23 09/09/23
06:59 06:59 06:59
Intake Total 480 / 480 840 / 840
Balance 480 / 480 840 / 840
Physical Exam
-
General: No Apparent Distress
HEENT: Normocephalic and Atraumatic
Respiratory: Negative Wheezes or Rales
Cardiac: Regular Rhythm and S1/S2
GI: Soft
Genito-urinary: No Costovertebral Tender
Neuro: AO x 3
Hematologic / Lymphatic: No Lymphadenopathy
Psych: Calm
Data Reviewed
-
Total Time Spent with Patient (in minutes): 44
Labs: Labs Reviewed by me
--- NOTE | 2023-09-08 11:47 | W.PN.OBG.DWH ---
Today's Communication / Plan
-
continue with abx-awaiting urine culture senstivities
Assessment/Plan
-
1.POD#3 s/p hysteroscopy D&C for postmenopausal bleeding/thickened endometrial linign. Path pending.
2. Admitted with fever, chills-etiologies include infectious or ischemic enteritis (GI feels less likely given lack of GI symptomatology), UTI. Leukocytosis slowly decreasing.
3. UTI-Ecoli >30K, sensitivities pending.
4. Will sign off as does not appear to be stock shipper in nature. PT will follow up with me for postop check. Will call her with stock shipper path.
5. Diabetes mgmt per hospitalist
Subjective Data
-
POD# 3 S/P hysteroscopy D&C
Feeling ok. No abd pain. No N/V/D. HX constipation
HAd temp overnight 100.4 @ 23:55
BS low this am even after orange juice
Objective Data
-
Laboratory Results
09/08/23 06:53
09/08/23 06:53
Vital Signs
Temp Pulse Resp BP Pulse Ox
97.8 F 78 16 139/71 96
09/08/23 10:00 09/08/23 10:00 09/08/23 10:00 09/08/23 10:00 09/08/23 10:00
Appearance-looking better today, more color in her face. NAD. AAOx3.
VS: Tm 100.4 4/7 @ 23:55 Tx 97.8
Cor: regular rate
Pulm: clear
Abd: soft +bs ND/NT
no vag bleeding
ext: no calf pain
[2023-09-08] MEDS: D5/0.9% SODIUM CHLORIDE 1000 IV (12:51)
[2023-09-08] MEDS: NSS IV (13:13)
[2023-09-08 13:18] LABS: Glucose - Point of Care 193 mg/dl (70-99)
[2023-09-08] MEDS: NOVOLOG FLEXPEN-LOW RESISTANCE 1 UNITS SC ×2 (13:30→17:23)
[2023-09-08 14:10] LABS: Hematocrit 25.7 % (37.0-47.0); Hemoglobin 8.8 g/dL (12.0-16.0)
[2023-09-08 14:32] LABS: Iron 31 ug/dl (37-170)
[2023-09-08 14:41] LABS: Percent Saturation 14 % (20-50); Total Iron Binding Capacity 212 ug/dl (265-497)
--- NOTE | 2023-09-08 14:41 | CM ---
Alert awake oriented patient who lives with her Ramsey who lives in a home with 2 steps to enter and 4 to bed/bath room.She is independent in driving working and in all activities of daily living.Offered VN she declined.
No adaptive devices
Never had VN/SNF
Pharmacy [facility]
PCP Dr Rodriguez
PLAN Home declined VN
[2023-09-08 15:31] LABS: Folate 11.5 ng/ml (2.76-20); Vitamin B12 > 1000 pg/ml (239-931)
[2023-09-08 15:34] LABS: Glucose - Point of Care 192 mg/dl (70-99)
[2023-09-08 15:55] VITALS: BP 133/69
[2023-09-08 17:02] LABS: Glucose - Point of Care 166 mg/dl (70-99)
[2023-09-08 21:24] LABS: Glucose - Point of Care 153 mg/dl (70-99)
[2023-09-08 23:54] VITALS: BP 126/70
[2023-09-09] MEDS: ZOSYN 50 IV ×4 (01:41→21:39)
[2023-09-09 02:36] LABS: Glucose - Point of Care 91 mg/dl (70-99)
[2023-09-09 05:39] LABS: % Basophils 0.4 % (0-2); % Immature Granulocytes 0.7 % (0-0.5); % Monocytes 5.3 % (1.7-9.3); % Neutrophils 83.6 % (42.2-75.2); Absolute Basophils 0.1 10^3/uL (0-0.2); Absolute Immature Granulocytes 0.1 10^3/uL (0-0.05); Absolute Lymphocytes 1.4 10^3/uL (1.2-3.4); Absolute Monocytes 0.7 10^3/uL (0.1-0.6); Absolute Neutrophils 11.4 10^3/uL (1.4-6.5); Hemoglobin 8.9 g/dL (12.0-16.0); Mean Corp Hgb Conc. 35.6 g/dL (33.0-37.0); Mean Corpuscular Hgb 32.6 pg (27.0-31.0); Mean Corpuscular Volume 91.6 fL (81.0-99.0); Mean Platelet Volume 11.6 fL (7.4-10.4); Nucleated Red Blood Cells % 0 %; Platelet Count 153 10^3/uL (130-400); Red Blood Cell Count 2.73 10^6/uL (4.20-5.40); White Blood Cell Count 13.7 10^3/uL (4.8-10.8)
[2023-09-09 06:14] LABS: Blood Urea Nitrogen 13 mg/dl (7-17); Calcium 8.5 mg/dl (8.4-10.2); Carbon Dioxide 23 mmol/L (22-30); Chloride 106 mmol/L (98-107); Estimated Creatinine Clearance 56 ml/min; Glucose 125 mg/dl (70-99); Potassium 3.9 mmol/L (3.5-5.1); Sodium 134 mmol/L (135-145); eGFR > 60.00
--- NOTE | 2023-09-09 07:32 | W.PN.HOSP.TC ---
Today's Communication/Plan
-
low residue diet
iron supplementation
monitor H&H
cont IV abx, likely transition to oral tomorrow depending on clinical progress
Assessment / Plan
Assessment / Plan
Physical Exam
General: No Apparent Distress
HEENT: Normocephalic and Atraumatic
Respiratory: Negative Wheezes or Rales
Cardiac: Regular Rhythm and S1/S2
GI: Soft
Genito-urinary: No Costovertebral Tender
Neuro: AO x 3
Hematologic / Lymphatic: No Lymphadenopathy
Psych: Calm
Assessment:
Sepsis POA (fever, leucocytosis, tachycardia, UTI)
UTI
- no physical exam or CT evidence of pyelonephritis; CT did show moderate distention of the urinary bladder
- was not cathed for recent CATERING SERVICE MANAGER procedure
- could be related to recently initiated SGLT2 inhibitor
- continue empiric Zosyn, day 3
- received 1 dose of Gent 09/06
- IVF completed
- check bladder scans
-Urine cx appreciated E. coli pansensitive
-likely transition to Augmentin tomorrow if remains clinically stable/afebrile/white count continues to trend down/continues to improve
ileal small bowel loops with distention, thickening on exam
- GI eval appreciated
- more likely felt to be ileus post-sedation rather than enteritis with lack of significant abd pain
- advanced to fulls
- send stool studies with loose stools. Loose stools could represent opening ileus vs Abx side effects
-stool studies so far neg
-Probiotic started
Constipation
-cont bowel regimen as per GI
Acute anemia
Anemia of chronic disease
mild iron deficiency
- multifactorial from recent vag bleeding, dilutional
- Heme + loose stools, evaluation as per GI
-H&H stable
-oral iron supplementation started
post-menopausal bleeding
L ovarian cyst
- s/p D&C on 09/04; biopsies pending
- CT without evidence of uterine perforation
- CATERING SERVICE MANAGER eval appreciated
DMT2
- hold Glipizide
- hold SGLT2 inhibitor
- continue SSI
- A1c: 10.1%
HLD
- cont Statin
HX of pericardial effusion
CAD: Remote PCI stenting, continue aspirin and statin
- small per updated Echo
- continue ASA
- Cards signed off
Hyponatremia
stable 130s
Hypokalemia
monitor and replete as necessary
HX of neck pain
- MRI without discitis
- showed:
1. 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 Severe right neural foraminal narrowing at C6/C7.
2. Small central disc herniations at C4/C5 and C5/C6 causing mild spinal cord compression.
3. 4 mm anterolisthesis of C5 on C6 secondary to severe left-sided facet joint arthrosis.
4. Moderate right-sided facet joint arthrosis at C3/C4 causing moderate right neural foraminal narrowing.
5. Small multilevel thoracic disc herniations causing mild spinal cord compression.
DVT ppx: SCDs
Code: Full
PT/OT appreciated Home Health
discussed with patient at bedside and patient's daughter Dr Jacquelyn Yung over phone
I spent a total of 57 minutes with the patient or on the floor. More than 50% of this time involved counseling and coordination of care.
Anticipated Discharge: 24 - 48 hours
Subjective/Interval History
-
Date of Service: September 09, 2023
Seen and examined at bedside in no acute distress sitting up comfortably in bed reports improvement in symptoms. Last fever last night, afebrile since. Reports constipation.
Objective Data
-
Labs:
Laboratory Results
09/09/23
05:16
WBC 13.7 H
Hgb 8.9 L
Hct 25.0 L
Plt Count 153
Sodium 134 L
Potassium 3.9
Chloride 106
Carbon Dioxide 23
BUN 13
Creatinine 0.8
Glucose 125 H
Calcium 8.5
Vital Signs:
Vital Signs
Temp Pulse Resp BP Pulse Ox
98.8 F 85 17 126/70 95
09/09/23 00:43 09/08/23 23:54 09/08/23 23:54 09/08/23 23:54 09/08/23 23:54
I&O
09/08/23 09/09/23 09/10/23
06:59 06:59 06:59
Intake Total 840 / 840 1919
Balance 840 / 840 1919
[2023-09-09 08:24] VITALS: BP 125/70
[2023-09-09] MEDS: NOVOLOG FLEXPEN-LOW RESISTANCE SC ×2 (08:27→12:51)
[2023-09-09] MEDS: LOW STRENGTH ASPIRIN 81 MG PO (08:30)
[2023-09-09] MEDS: PROTONIX IV 40 MG IV (08:30)
[2023-09-09] MEDS: NSS (PRESERVATIVE FREE) 10 ML IV (08:31)
[2023-09-09 09:50] VITALS: BP 127/65; BP 134/67; PULSE 83; O2SAT 100
[2023-09-09 09:59] LABS: Glucose - Point of Care 100 mg/dl (70-99)
--- NOTE | 2023-09-09 11:18 | W.PN.GI.CBS2 ---
Addendum entered and electronically signed by Radha Moreno DO 09/09/23 19:52:
Patient seen and examined independently of BARTENDER MANAGER. I agree with her note with my additions below
Patient is much improved since admission. Her leukocytosis is improving. Her fever curve has improved. Last fever last night. Her diarrhea has also improved she has gone a couple of times today but was going on this hourly last night.
She is being treated for an E. coli UTI
CT of her abdomen pelvis shows mild distention and wall thickening with mucosal enhancement throughout the ileal small bowel loops which could be postoperative ileus versus acute infection. Her stool studies were all negative including WBCs.
-- Advance diet, will monitor
Discussed with family at bedside
Original Note:
Today's Communication / Plan
-
etiology of symptoms with concern for UTI and enteritis s/p D+C
WBC improving
now starting ADA diet monitor tolerance
cont abx with UTI
trend hbg with anemia
reviewed with hx constipation use Miralax 1/2-1 capful daily on discharge - can add Metamucil 3-4 weeks when enteritis improves
cont probiotics
cont Protonix daily
cont Iron
Assessment / Plan
-
pt is a 78-year-old female with past medical history with DM, post menopausal bleeding, uterine prolapse cystocele, rectocele, cardiac stent who presents with rigors and vomiting. She underwent hysteroscopy with D&C on 09/04. On admission noted
with leukocytosis, Ecoli UTI and CT scan showed no perforation, some mild distention of the urinary bladder, along with mild distention wall thickening of the ileum. Throughout this she never had any severe abdominal pain. She has had no issues
like this previously and usually has no GI issues. She has had procedures with GI in [place] which have been unremarkable including colonoscopy endoscopy by report. Currently she is feeling a little bit better, denies any vomiting or severe
abdominal pain
fever/rigor
Ecoli UTI
ileal thickening on CT concern for enteritis
anemia
s/p D+C 09/04
DM
PLAN:etiology of symptoms with concern for UTI and enteritis s/p D+C
WBC improving
now starting ADA diet monitor tolerance
cont abx with UTI
trend hbg with anemia
reviewed with hx constipation use Miralax 1/2-1 capful daily on discharge - can add Metamucil 3-4 weeks when enteritis improves
cont probiotics
cont Protonix daily
cont Iron
Subjective
Subjective
Date of Service: September 09, 2023
09/08 black stool on low residue diet starting first meal now
Objective
Data Reviewed
Laboratory Data:
Laboratory Results
09/09/23 05:16
09/09/23 05:16
Laboratory Results
Magnesium 1.7 mg/dl (1.6-2.3) 09/07/23 20:37
Total Bilirubin 0.8 mg/dl (0.2-1.3) 09/07/23 06:56
AST 36 U/L (14-36) 09/07/23 06:56
ALT 26 U/L (0-35) 09/07/23 06:56
Alkaline Phosphatase 89 U/L (38-126) 09/07/23 06:56
Amylase 45 U/L (30-110) 09/07/23 06:56
Lipase 60 U/L (23-300) 09/07/23 06:56
Vital Signs and I&O:
Vital Signs
Temp Pulse Resp BP Pulse Ox
98.2 F 85 18 125/70 99
09/09/23 08:24 09/09/23 08:24 09/09/23 08:24 09/09/23 08:24 09/09/23 08:24
I&O
09/08/23 09/09/23 09/10/23
06:59 06:59 06:59
Intake Total 840 / 840 0 / 1920
Balance 840 / 840 1919
Physical Exam
Physical Exam
HEENT: Anicteric and Moist mucous membranes
Cardiology: Normal Sinus Rhythm
Pulmonary: Clear
GI: Soft, Non Distended and Tender (minimal lower abdominal pain)
Extremities: No Edema
Neuro: Non Focal
[2023-09-09 11:44] VITALS: BP 132/70; PULSE 87; O2SAT 100
[2023-09-09 11:56] LABS: Glucose - Point of Care 85 mg/dl (70-99)
--- NOTE | 2023-09-09 12:23 | PTCARENOTE ---
Patient had loose brown stool. Heme test positive. HGB 8.9 this morning. No other evidence of bleeding. Pneumatic compression stockings applied bilaterally. Patient steady on feet and can ambulate with assist of one person. Encouraged to ring call
nieves for assistance if needing to use restroom or ambulate. Patient states she has had poor appetite and has had weight loss of approximately 10 pounds over a few weeks. Nutrition consult placed. Patient advanced to low residue diet for lunch.
Awaiting lunch order at this time.
--- NOTE | 2023-09-09 16:19 | CM ---
GI involved.
Continues IV antibiotics.
PT said Home no needs VS VN .
Offered VN she declined.She said Ramsey [place]
PLAN Home no needs
[2023-09-09 16:22] VITALS: BP 122/62
[2023-09-09 17:39] LABS: Glucose - Point of Care 163 mg/dl (70-99)
[2023-09-09] MEDS: NOVOLOG FLEXPEN-LOW RESISTANCE 1 UNITS SC (17:58)
--- NOTE | 2023-09-09 19:52 | W.PN.UPDATE ---
Update Note
Progress Note Update
For billing purposes
[2023-09-09 21:36] LABS: Glucose - Point of Care 270 mg/dl (70-99)
[2023-09-09] MEDS: FLORASTOR 250 MG PO (21:38)
[2023-09-09 23:40] VITALS: BP 128/60
[2023-09-10] MEDS: ZOSYN 50 IV ×2 (02:44→08:36)
[2023-09-10 06:00] VITALS: BMI 20.9
[2023-09-10 07:26] LABS: % Basophils 0.4 % (0-2); % Immature Granulocytes 0.5 % (0-0.5); % Lymphocytes 19.7 % (20.5-51.1); % Monocytes 5.7 % (1.7-9.3); % Neutrophils 73.7 % (42.2-75.2); Absolute Lymphocytes 1.5 10^3/uL (1.2-3.4); Absolute Monocytes 0.4 10^3/uL (0.1-0.6); Absolute Neutrophils 5.4 10^3/uL (1.4-6.5); Hematocrit 25.6 % (37.0-47.0); Hemoglobin 8.7 g/dL (12.0-16.0); Mean Corpuscular Hgb 31.9 pg (27.0-31.0); Mean Corpuscular Volume 93.8 fL (81.0-99.0); Nucleated Red Blood Cells % 0 %; Platelet Count 167 10^3/uL (130-400); Red Blood Cell Count 2.73 10^6/uL (4.20-5.40); Red Cell Dist. Width 13.9 % (11.5-14.5); White Blood Cell Count 7.4 10^3/uL (4.8-10.8)
--- NOTE | 2023-09-10 07:26 | W.PN.HOSP.TC ---
Today's Communication/Plan
-
IV abx transitioned to Augmentin
home glipizide resumed
low residue diet
iron supplementation
monitor H&H
discharge planning home with home services
Assessment / Plan
Assessment / Plan
Physical Exam
General: No Apparent Distress
HEENT: Normocephalic and Atraumatic
Respiratory: Negative Wheezes or Rales
Cardiac: Regular Rhythm and S1/S2
GI: Soft
Genito-urinary: No Costovertebral Tender
Neuro: AO x 3
Hematologic / Lymphatic: No Lymphadenopathy
Psych: Calm
Assessment:
Sepsis POA (fever, leucocytosis, tachycardia, UTI)
UTI
- no physical exam or CT evidence of pyelonephritis; CT did show moderate distention of the urinary bladder
- was not cathed for recent SKIRT MAKER procedure
- could be related to recently initiated SGLT2 inhibitor
- received 1 dose of Gent 09/06
- IVF completed
-Urine cx appreciated E. coli pansensitive
-IV zosyn transitioned to Augmentin for 10 more days
ileal small bowel loops with distention, thickening on exam
- GI eval appreciated
- more likely felt to be ileus post-sedation rather than enteritis with lack of significant abd pain
- advanced to fulls
- send stool studies with loose stools. Loose stools could represent opening ileus vs Abx side effects
-stool studies so far neg
-Probiotic started
Constipation
-cont bowel regimen as per GI
Acute anemia
Anemia of chronic disease
mild iron deficiency
- multifactorial from recent vag bleeding, dilutional
- Heme + loose stools, evaluation as per GI
-H&H stable
-oral iron supplementation started
post-menopausal bleeding
L ovarian cyst
- s/p D&C on 09/04; biopsies pending
- CT without evidence of uterine perforation
- SKIRT MAKER eval appreciated
DMT2
- Glipizide resumed
- hold SGLT2 inhibitor
- continue SSI
- A1c: 10.1%
HLD
- cont Statin
HX of pericardial effusion
CAD: Remote PCI stenting, continue aspirin and statin
- small per updated Echo
- continue ASA
- Cards signed off
Hyponatremia
stable 130s
Hypokalemia
monitor and replete as necessary
HX of neck pain
- MRI without discitis
- showed:
1. 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 Severe right neural foraminal narrowing at C6/C7.
2. Small central disc herniations at C4/C5 and C5/C6 causing mild spinal cord compression.
3. 4 mm anterolisthesis of C5 on C6 secondary to severe left-sided facet joint arthrosis.
4. Moderate right-sided facet joint arthrosis at C3/C4 causing moderate right neural foraminal narrowing.
5. Small multilevel thoracic disc herniations causing mild spinal cord compression.
DVT ppx: SCDs
Code: Full
PT/OT appreciated Home Health
discussed with patient at bedside and patient's daughter Dr Gibbsmassiel Sandovalmarilee over phone
I spent a total of 57 minutes with the patient or on the floor. More than 50% of this time involved counseling and coordination of care.
Anticipated Discharge: Within 24 hours
Subjective/Interval History
-
Date of Service: September 10, 2023
fever white count resolved. Reports feeling well. Denies new acute issues.
Objective Data
-
Labs:
Laboratory Results
09/10/23
06:48
WBC Pending
Hgb Pending
Hct Pending
Plt Count Pending
Sodium Pending
Potassium Pending
Chloride Pending
Carbon Dioxide Pending
BUN Pending
Creatinine Pending
Glucose Pending
Calcium Pending
Vital Signs:
Vital Signs
Temp Pulse Resp BP Pulse Ox
98.3 F 76 16 128/60 97
09/09/23 23:40 09/09/23 23:40 09/09/23 23:40 09/09/23 23:40 09/09/23 23:40
I&O
09/09/23 09/10/23 09/11/23
06:59 06:59 06:59
Intake Total 1919 1380 / 1380
Balance 1919 1380 / 1380
--- NOTE | 2023-09-10 07:32 | W.PN.UPDATE ---
Addendum entered and electronically signed by JONATHAN Black 09/10/23 11:18:
correction to below see Dr. Moreno for billing 09/08. See further plan for today.
Original Note:
Update Note
Progress Note Update
for billing purposes from 09/08
will sign off call with questions. See discharge plan in 09/08 note
[2023-09-10 07:54] VITALS: BP 121/63
[2023-09-10 07:55] LABS: Blood Urea Nitrogen 16 mg/dl (7-17); Calcium 8.7 mg/dl (8.4-10.2); Carbon Dioxide 26 mmol/L (22-30); Chloride 105 mmol/L (98-107); Estimated Creatinine Clearance 64 ml/min; Glucose 169 mg/dl (70-99); Potassium 3.8 mmol/L (3.5-5.1); Sodium 135 mmol/L (135-145); eGFR > 60.00
[2023-09-10 08:23] LABS: Glucose - Point of Care 150 mg/dl (70-99)
[2023-09-10] MEDS: NOVOLOG FLEXPEN-LOW RESISTANCE SC (08:35)
[2023-09-10] MEDS: NSS (PRESERVATIVE FREE) 10 ML IV (08:36)
[2023-09-10] MEDS: LOW STRENGTH ASPIRIN 81 MG PO (08:37)
[2023-09-10] MEDS: FLORASTOR 250 MG PO ×2 (08:37→20:09)
[2023-09-10] MEDS: PROTONIX IV 40 MG IV (08:37)
[2023-09-10] MEDS: FEOSOL 325 MG PO (08:37)
--- NOTE | 2023-09-10 09:53 | W.PN.GI.CBS2 ---
Addendum entered and electronically signed by Radha Moreno DO 09/10/23 15:49:
Patient seen and examined independently of HAND CLOTH CUTTER. I agree with her note with my additions below
Patient is improving. She had some minimal left lower quadrant discomfort prior to 1 bowel movement that she has had today that was loose but controllable. She is tolerating her diet well.
She has been afebrile, her UTI is being treated with now oral antibiotics for E. coli. Her leukocytosis has improved.
She can follow-up with us or her GI in [place] since that is where she had her previous endoscopy and colonoscopy if she continues to have persistent symptoms or anemia
GI will sign off. Please call us back with any questions. Have placed her diabetic diet. She knows in terms of fiber to slowly start reintroducing. I told her to stay away from lactose for couple of weeks after having an enteritis/ileus
Original Note:
Today's Communication / Plan
-
etiology of symptoms with concern for UTI and enteritis s/p D+C
WBC normalized
cont low residue/ADA diet
cont abx with UTI- Zosyn may be adding to loose stool but changing to PO today
trend hbg with anemia remains stable range
change miralax to PRN with loose stools, can use as needed then add back fiber supplement in 1 month after enteritis improves
cont probiotics
cont Protonix daily
cont Iron
Assessment / Plan
-
pt is a 78-year-old female with past medical history with DM, post menopausal bleeding, uterine prolapse cystocele, rectocele, cardiac stent who presents with rigors and vomiting. She underwent hysteroscopy with D&C on 09/04. On admission noted
with leukocytosis, Ecoli UTI and CT scan showed no perforation, some mild distention of the urinary bladder, along with mild distention wall thickening of the ileum. Throughout this she never had any severe abdominal pain. She has had no issues
like this previously and usually has no GI issues. She has had procedures with GI in [place] which have been unremarkable including colonoscopy endoscopy by report. Currently she is feeling a little bit better, denies any vomiting or severe
abdominal pain
fever/rigor- resolved
Ecoli UTI
ileal thickening on CT concern for enteritis
anemia
s/p D+C 09/04
DM
PLAN:
etiology of symptoms with concern for UTI and enteritis s/p D+C
WBC normalized
cont low residue/ADA diet
cont abx with UTI- Zosyn may be adding to loose stool but changing to PO today
trend hbg with anemia remains stable range
change miralax to PRN with loose stools, can use as needed then add back fiber supplement in 1 month after enteritis improves
cont probiotics
cont Protonix daily
cont Iron
Subjective
Subjective
Date of Service: September 10, 2023
some loose stools, tolerating low residue diet
Objective
Data Reviewed
Laboratory Data:
Laboratory Results
09/10/23 06:48
09/10/23 06:48
Laboratory Results
Magnesium 1.7 mg/dl (1.6-2.3) 09/07/23 20:37
Total Bilirubin 0.8 mg/dl (0.2-1.3) 09/07/23 06:56
AST 36 U/L (14-36) 09/07/23 06:56
ALT 26 U/L (0-35) 09/07/23 06:56
Alkaline Phosphatase 89 U/L (38-126) 09/07/23 06:56
Amylase 45 U/L (30-110) 09/07/23 06:56
Lipase 60 U/L (23-300) 09/07/23 06:56
Vital Signs and I&O:
Vital Signs
Temp Pulse Resp BP Pulse Ox
98.3 F 81 18 121/63 98
09/10/23 07:54 09/10/23 07:54 09/10/23 07:54 09/10/23 07:54 09/10/23 07:54
I&O
09/09/23 09/10/23 09/11/23
06:59 06:59 06:59
Intake Total 1919 1380 / 1380
Balance 1919 1380 / 1380
Physical Exam
Physical Exam
HEENT: Anicteric and Moist mucous membranes
Cardiology: Normal Sinus Rhythm
Pulmonary: Clear
GI: Soft, Non Distended and Tender (minimal )
Extremities: No Edema
Neuro: Non Focal
[2023-09-10] MEDS: AUGMENTIN 875 MG/125 MG 1 TABLET PO ×2 (10:30→20:12)
--- NOTE | 2023-09-10 10:38 | PTCARENOTE ---
Reviewed plan of care with patient and patient's daughter via phone. Will continue with antibiotics and MD will change to oral route today. Patient has had a decreased appetite with weight loss. Nutrition consulted. Patient tolerating low residual
diet since yesterday. Patient states she had one small loose stool this morning but feels as though 'her bowels are getting better'. Educated patient on low residual diet. Patient verbalizes understanding of teaching.
--- NOTE | 2023-09-10 10:48 | CM ---
GI involved Maintained low residual diet.
PT said no needs VS home PT . OT no needs.
Offered Vn she declined .
IV antibiotics to be changed to po antibiotics.
PLAN Home probable No needs
[2023-09-10] MEDS: NOVOLOG FLEXPEN-LOW RESISTANCE 1 UNITS SC ×2 (12:35→18:01)
[2023-09-10 14:26] LABS: Glucose - Point of Care 188 mg/dl (70-99)
--- NOTE | 2023-09-10 15:49 | W.PN.UPDATE ---
Update Note
Progress Note Update
For billing purposes
[2023-09-10 16:00] VITALS: BP 132/67
[2023-09-10 17:58] LABS: Glucose - Point of Care 194 mg/dl (70-99)
[2023-09-10 21:27] LABS: Glucose - Point of Care 279 mg/dl (70-99)
[2023-09-10 23:54] VITALS: BP 117/62
[2023-09-11 05:30] LABS: % Basophils 0.5 % (0-2); % Immature Granulocytes 0.7 % (0-0.5); % Lymphocytes 25.4 % (20.5-51.1); % Monocytes 9.5 % (1.7-9.3); % Neutrophils 63.9 % (42.2-75.2); Absolute Lymphocytes 1.4 10^3/uL (1.2-3.4); Absolute Monocytes 0.5 10^3/uL (0.1-0.6); Absolute Neutrophils 3.6 10^3/uL (1.4-6.5); Hematocrit 24.5 % (37.0-47.0); Hemoglobin 8.5 g/dL (12.0-16.0); Mean Corp Hgb Conc. 34.7 g/dL (33.0-37.0); Mean Corpuscular Hgb 31.8 pg (27.0-31.0); Mean Corpuscular Volume 91.8 fL (81.0-99.0); Mean Platelet Volume 11.3 fL (7.4-10.4); Nucleated Red Blood Cells % 0 %; Platelet Count 177 10^3/uL (130-400); Red Blood Cell Count 2.67 10^6/uL (4.20-5.40); Red Cell Dist. Width 13.8 % (11.5-14.5); White Blood Cell Count 5.6 10^3/uL (4.8-10.8)
[2023-09-11 06:00] VITALS: BMI 21.2
[2023-09-11 06:05] LABS: Blood Urea Nitrogen 21 mg/dl (7-17); Calcium 9.1 mg/dl (8.4-10.2); Carbon Dioxide 30 mmol/L (22-30); Chloride 100 mmol/L (98-107); Estimated Creatinine Clearance 56 ml/min; Glucose 206 mg/dl (70-99); Potassium 4.3 mmol/L (3.5-5.1); Sodium 136 mmol/L (135-145); eGFR > 60.00
[2023-09-11 07:55] VITALS: BP 147/64
[2023-09-11 07:56] LABS: Glucose - Point of Care 189 mg/dl (70-99)
[2023-09-11] MEDS: NOVOLOG FLEXPEN-LOW RESISTANCE 1 UNITS SC (08:39)
[2023-09-11] MEDS: AUGMENTIN 875 MG/125 MG 1 TABLET PO (08:40)
[2023-09-11] MEDS: FLORASTOR 250 MG PO (08:40)
[2023-09-11] MEDS: GLUCOTROL XL (EXTENDED RELEASE) 10 MG PO (08:40)
[2023-09-11] MEDS: LOW STRENGTH ASPIRIN 81 MG PO (08:40)
[2023-09-11] MEDS: PROTONIX IV 40 MG IV (08:40)
[2023-09-11] MEDS: FEOSOL 325 MG PO (08:40)
[2023-09-11] MEDS: NSS (PRESERVATIVE FREE) 10 ML IV (08:41)
--- NOTE | 2023-09-11 10:24 | W.PN.HOSP.TC ---
Today's Communication/Plan
-
dc to home likely today
Assessment / Plan
Assessment / Plan
Assessment:
Sepsis POA (fever, leucocytosis, tachycardia, UTI)
UTI
- no physical exam or CT evidence of pyelonephritis; CT did show moderate distention of the urinary bladder
- was not cathed for recent TELECASTING TECHNICIAN procedure
- could be related to recently initiated SGLT2 inhibitor
- received 1 dose of Gent 09/06
- IVF completed
- Urine cx appreciated E. coli pansensitive
- continue Augmentin x 10 days further
ileal small bowel loops with distention, thickening on exam
- GI eval appreciated
- more likely felt to be ileus post-sedation rather than enteritis with lack of significant abd pain
- tolerating low res diet
- Loose stools could represent opening ileus vs Abx side effects. Stool studies neg. on Probiotic
Constipation
- cont bowel regimen as per GI
Acute anemia
Anemia of chronic disease
mild iron deficiency
- multifactorial from recent vag bleeding, dilutional
- Heme + loose stools, evaluation as per GI
- H&H stable
- oral iron supplementation started
post-menopausal bleeding
L ovarian cyst
- s/p D&C on 09/04; path showed acute cervicitis (no dysplasia) and benign atrophic endometrium, with detached fragments of acute inflammation and fibrin, no atypia
- CT without evidence of uterine perforation
- TELECASTING TECHNICIAN f/u next week
DMT2
- Glipizide resumed
- hold SGLT2 inhibitor
- continue SSI
- A1c: 10.1%
HLD
- cont Statin
HX of pericardial effusion
CAD: Remote PCI stenting, continue aspirin and statin
- small per updated Echo
- continue ASA
- Cards signed off
Hyponatremia
- stable 130s
Hypokalemia
- monitor and replete as necessary
HX of neck pain
- MRI without discitis
- showed:
1. 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 Severe right neural foraminal narrowing at C6/C7.
2. Small central disc herniations at C4/C5 and C5/C6 causing mild spinal cord compression.
3. 4 mm anterolisthesis of C5 on C6 secondary to severe left-sided facet joint arthrosis.
4. Moderate right-sided facet joint arthrosis at C3/C4 causing moderate right neural foraminal narrowing.
5. Small multilevel thoracic disc herniations causing mild spinal cord compression.
DVT ppx: SCDs
Code: Full
More than 30 minutes spent in discharge including
Final examination of the patient
Summarizing hospital stay
Instructions for continuing care to all relevant caregivers
Preparation of discharge records, prescriptions, and referral forms
Total time spent (in minutes):42
Anticipated Discharge: Today
Subjective/Interval History
-
Date of Service: September 11, 2023
feels well no complaints
no fevers
tolerating diet, stools somewhat loose at times but overall improving
Objective Data
-
Labs:
Laboratory Results
09/11/23
05:05
WBC 5.6
Hgb 8.5 L
Hct 24.5 L
Plt Count 177
Sodium 136
Potassium 4.3
Chloride 100
Carbon Dioxide 30
BUN 21 H
Creatinine 0.8
Glucose 206 H
Calcium 9.1
Vital Signs:
Vital Signs
Temp Pulse Resp BP Pulse Ox
97.8 F 79 18 147/64 100
09/11/23 07:55 09/11/23 07:55 09/11/23 07:55 09/11/23 07:55 09/11/23 07:55
I&O
09/10/23 09/11/23 09/12/23
06:59 06:59 06:59
Intake Total 1380 / 1380 840 / 840
Balance 1380 / 1380 840 / 840
Physical Exam
-
General: No Apparent Distress
HEENT: Normocephalic and Atraumatic
Respiratory: Negative Wheezes or Rales
Cardiac: Regular Rhythm and S1/S2
GI: Soft and Nontender
Musculoskeletal: No Edema
Neuro: AO x 3
Hematologic / Lymphatic: No Lymphadenopathy
Psych: Calm
Data Reviewed
-
Total Time Spent with Patient (in minutes): 42
Labs: Labs Reviewed by me
--- NOTE | 2023-09-11 10:40 | W.DS.TRANS ---
DC Summary - Director Work
-
Discharge Instructions:
Discharge Diagnosis/Procedures UTI with sepsis. Ileus, acute anemia
Diet Diabetic, Carb Controlled,Low Residue
Additional Diets avoid lactose for couple of weeks after having
an enteritis/ileus
Activity As tolerated
Bathing Restrictions None
Instructions:
Stand-Alone Forms:
Changes to Home Medications: Yes
Discharge Medications:
DC Medications w/original date entered in [facility]
aspirin 81 mg chewable tablet 81 mg PO DAILY 05/10/16
atorvastatin 20 mg tablet 20 mg PO QPM #90 tabs 05/10/16
coQ10 (ubiquinol) 100 mg capsule 100 mg PO DAILY 05/10/16
nitroglycerin 0.4 mg sublingual tablet 0.4 mg sublingual [id number] PRN chest pain #25 tabs 05/10/16
Fish Oil 1 dose PO DAILY 09/03/23
cholecalciferol (vitamin D3) 125 mcg (5,000 unit) tablet (Vitamin D3) 125 mcg PO DAILY 09/03/23
glipizide 10 mg tablet, extended release 24 hr (Glucotrol XL) 10 mg PO BID 09/03/23
repaglinide 0.5 mg tablet 0.5 mg PO TID 09/03/23
Saccharomyces boulardii 250 mg capsule 250 mg PO BID #60 caps 09/11/23
amoxicillin 875 mg-potassium clavulanate 125 mg tablet 1 tab PO Q12 #18 tabs 09/11/23
ferrous sulfate 325 mg (65 mg iron) tablet (FeroSul) 325 mg PO DAILY #100 tabs 09/11/23
pantoprazole 40 mg tablet,delayed release (Protonix) 40 mg PO DAILY #30 tabs 09/11/23
polyethylene glycol 3350 17 gram oral powder packet (HealthyLax) 17 g PO DAILY PRN constipation #30 ea 09/11/23
Home Medication Changes
stop Farxiga
Pending Results: No
Total time spent discharging patient (in min): 41
--- NOTE | 2023-09-11 10:50 | CM ---
MD indicated pt ready for dc today.
GI involved Maintained low residual diet.
Offered VN she declined .She said her daughter lives close and she is a doctor.
Daughter Dr Lesly soliman drive pt home.
IV antibiotics to be changed to po antibiotics.
PLAN Home declined needs
[2023-09-11 11:45] LABS: Glucose - Point of Care 205 mg/dl (70-99)
[2023-09-11] MEDS: NOVOLOG FLEXPEN-LOW RESISTANCE 2 UNITS SC (12:15)
[2023-09-11 14:01] VITALS: BP 137/75
== END 2023-09-11 14:02 | disposition home or self-care (01) | DRG 872 ==
LOC: 4 EAST ACU 22:04
PROVIDERS: Emergency Medicine; Physician Assistant; Registered Nurse; ADMITTING PHYSICIAN Internal Medicine; ATTENDING PHYSICIAN Internal Medicine; CONSULT PHYSICIAN Internal Medicine Cardiovascular Disease; CONSULT PHYSICIAN Internal Medicine Gastroenterology; CONSULT PHYSICIAN Obstetrics & Gynecology; EMERGENCY PHYSICIAN Emergency Medicine; FAMILY PHYSICIAN Family Medicine; REFERRING PHYSICIAN Family Medicine
DX: A41.9 Sepsis, unspecified organism (principal); N39.0 Urinary tract infection, site not specified; I31.39 Other pericardial effusion (noninflammatory); E87.1 Hypo-osmolality and hyponatremia; K56.7 Ileus, unspecified; D62 Acute posthemorrhagic anemia; K52.9 Noninfective gastroenteritis and colitis, unspecified; E11.9 Type 2 diabetes mellitus without complications; K44.9 Diaphragmatic hernia without obstruction or gangrene; Z79.82 Long term (current) use of aspirin; E78.00 Pure hypercholesterolemia, unspecified; N95.0 Postmenopausal bleeding; N83.202 Unspecified ovarian cyst, left side; E87.6 Hypokalemia
CPT/HCPCS: 70450; 71046; 72156; 74177; 80048; 80053; 81003; 81015; 82150; 82607; 82728; 82746; 82962; 83036; 83540; 83550; 83605; 83690; 83735; 85014; 85018; 85025; 85027; 86850; 86900; 86901; 87040; 87045; 87046; 87077; 87086; 87186; 87324; 87427; 87449; 87798; 89055; 93005; 93306; 96361; 96365; 97116; 97161; 97165; 99285; A9575; Q9967

== ENCOUNTER → 2023-12-19 07:37 | Outpatient (REF) | payer BC, SELFPAY | LOC: WDC 07:37 | PROVIDERS: ATTENDING PHYSICIAN Obstetrics & Gynecology; FAMILY PHYSICIAN Family Medicine | DX: Z12.31 Encounter for screening mammogram for malignant neoplasm of breast (principal) | CPT/HCPCS: 77063; 77067 ==

== ENCOUNTER → 2024-01-16 08:37 | Outpatient (REF) | payer BC, SELFPAY ==
[2024-01-16 10:21] LABS: % Basophils 0.7 % (0-2); % Eosinophils 0.5 % (0-6); % Immature Granulocytes 0.2 % (0-0.5); % Lymphocytes 38.2 % (20.5-51.1); % Monocytes 11.1 % (1.7-9.3); % Neutrophils 49.3 % (42.2-75.2); Absolute Lymphocytes 2.4 10^3/uL (1.2-3.4); Absolute Monocytes 0.7 10^3/uL (0.1-0.6); Hematocrit 34.2 % (37.0-47.0); Hemoglobin 11.8 g/dL (12.0-16.0); Mean Corp Hgb Conc. 34.5 g/dL (33.0-37.0); Mean Corpuscular Hgb 32.2 pg (27.0-31.0); Mean Corpuscular Volume 93.2 fL (81.0-99.0); Mean Platelet Volume 11.2 fL (7.4-10.4); Nucleated Red Blood Cells % 0 %; Platelet Count 150 10^3/uL (130-400); Red Blood Cell Count 3.67 10^6/uL (4.20-5.40); Red Cell Dist. Width 13.5 % (11.5-14.5); White Blood Cell Count 6.2 10^3/uL (4.8-10.8)
[2024-01-16 10:47] LABS: Glycohemoglobin (HgbA1c) 8.2 % (4.0-5.6)
[2024-01-16 10:49] LABS: ALT (SGPT) 37 U/L (0-35); AST (SGOT) 32 U/L (14-36); Albumin 4.5 g/dl (3.5-5.0); Alkaline Phosphatase 91 U/L (38-126); Blood Urea Nitrogen 25 mg/dl (7-17); Calcium 9.6 mg/dl (8.4-10.2); Carbon Dioxide 30 mmol/L (22-30); Chloride 102 mmol/L (98-107); Glucose 100 mg/dl (70-99); Iron 84 ug/dl (37-170); Potassium 4.2 mmol/L (3.5-5.1); Sodium 139 mmol/L (135-145); Total Bilirubin 0.6 mg/dl (0.2-1.3); Total Protein 7.1 g/dl (6.3-8.2); eGFR > 60.00
[2024-01-16 10:59] LABS: Percent Saturation 27 % (20-50); Total Iron Binding Capacity 307 ug/dl (265-497)
[2024-01-16 11:26] LABS: TSH 4.19 uIU/ml (0.47-4.68)
[2024-01-16 11:31] LABS: Ferritin 43.1 ng/ml (11.1-264.0)
[2024-01-16 11:45] LABS: Vitamin B12 590 pg/ml (239-931)
[2024-01-17 20:50] LABS: Transferrin 247 mg/dL (200-360)
== END ==
LOC: REG 08:37
PROVIDERS: ATTENDING PHYSICIAN Family Medicine; FAMILY PHYSICIAN Family Medicine
DX: I15.1 Hypertension secondary to other renal disorders (principal); E03.4 Atrophy of thyroid (acquired); E11.65 Type 2 diabetes mellitus with hyperglycemia; E78.2 Mixed hyperlipidemia; I10 Essential (primary) hypertension; E11.9 Type 2 diabetes mellitus without complications
CPT/HCPCS: 36415; 80053; 82607; 82728; 83036; 83540; 83550; 84443; 84466; 85025

== ENCOUNTER → 2024-09-21 10:56 | Outpatient (REF) | payer BC, SELFPAY ==
[2024-09-21 12:32] LABS: % Basophils 0.7 % (0-2); % Immature Granulocytes 0.2 % (0-0.5); % Lymphocytes 39.7 % (20.5-51.1); % Monocytes 8.3 % (1.7-9.3); % Neutrophils 51.1 % (42.2-75.2); Absolute Lymphocytes 2.2 10^3/uL (1.2-3.4); Absolute Monocytes 0.5 10^3/uL (0.1-0.6); Absolute Neutrophils 2.8 10^3/uL (1.4-6.5); Hematocrit 35.5 % (37.0-47.0); Mean Corp Hgb Conc. 33.8 g/dL (33.0-37.0); Mean Corpuscular Hgb 32.3 pg (27.0-31.0); Mean Corpuscular Volume 95.7 fL (81.0-99.0); Mean Platelet Volume 11.1 fL (7.4-10.4); Nucleated Red Blood Cells % 0 %; Platelet Count 142 10^3/uL (130-400); Red Blood Cell Count 3.71 10^6/uL (4.20-5.40); Red Cell Dist. Width 13.2 % (11.5-14.5); White Blood Cell Count 5.6 10^3/uL (4.8-10.8)
[2024-09-21 12:49] LABS: Microalbumin, Random Urine 0.7 mg/dl (0.6-1.7); Microalbumin/creatinine Ratio 11.1 mg/g
[2024-09-21 13:10] LABS: ALT (SGPT) 37 U/L (0-35); AST (SGOT) 33 U/L (14-36); Albumin 4.4 g/dl (3.5-5.0); Alkaline Phosphatase 70 U/L (38-126); Blood Urea Nitrogen 27 mg/dl (7-17); Calcium 9.7 mg/dl (8.4-10.2); Carbon Dioxide 31 mmol/L (22-30); Chloride 102 mmol/L (98-107); Glucose 108 mg/dl (70-99); HDL Cholesterol 88 mg/dl; LDL Cholesterol, Calculated 49 mg/dl; Sodium 140 mmol/L (135-145); Total Bilirubin 0.8 mg/dl (0.2-1.3); Total Cholesterol 144 mg/dl (50-199); Triglyceride 35 mg/dl (10-149); Very Low Density Lipoprotein 7 mg/dl (0-30); eGFR > 60.00
[2024-09-21 13:41] LABS: TSH 3.89 uIU/ml (0.47-4.68)
[2024-09-21 14:20] LABS: Glycohemoglobin (HgbA1c) 8.9 % (4.0-5.6)
== END ==
LOC: REG 10:56
PROVIDERS: ATTENDING PHYSICIAN Family Medicine; OTHER PHYSICIAN Family Medicine
DX: E11.9 Type 2 diabetes mellitus without complications (principal); E03.9 Hypothyroidism, unspecified; I10 Essential (primary) hypertension; E78.5 Hyperlipidemia, unspecified; R53.83 Other fatigue; N39.0 Urinary tract infection, site not specified
CPT/HCPCS: 36415; 80053; 80061; 82043; 82570; 83036; 84443; 85025

== ENCOUNTER → 2024-12-22 07:52 | Outpatient (REF) | payer BC, SELFPAY ==
[2024-12-22 09:06] LABS: Hematocrit 35.4 % (37.0-47.0); Hemoglobin 12.1 g/dL (12.0-16.0); Mean Corp Hgb Conc. 34.2 g/dL (33.0-37.0); Mean Corpuscular Volume 95.2 fL (81.0-99.0); Platelet Count 125 10^3/uL (130-400); Red Cell Dist. Width 12.8 % (11.5-14.5)
[2024-12-22 09:32] LABS: Glycohemoglobin (HgbA1c) 8.1 % (4.0-5.6)
[2024-12-22 09:38] LABS: ALT (SGPT) 48 U/L (0-35); AST (SGOT) 38 U/L (14-36); Albumin 4.7 g/dl (3.5-5.0); Alkaline Phosphatase 75 U/L (38-126); Blood Urea Nitrogen 33 mg/dl (7-17); Calcium 9.6 mg/dl (8.4-10.2); Carbon Dioxide 30 mmol/L (22-30); Chloride 104 mmol/L (98-107); Glucose 137 mg/dl (70-99); Potassium 4.3 mmol/L (3.5-5.1); Sodium 142 mmol/L (135-145); Total Protein 7.4 g/dl (6.3-8.2); eGFR > 60.00
== END ==
LOC: WDC 07:52
PROVIDERS: ATTENDING PHYSICIAN Family Medicine; FAMILY PHYSICIAN Family Medicine
DX: E11.9 Type 2 diabetes mellitus without complications (principal); D51.1 Vitamin B12 deficiency anemia due to selective vitamin B12 malabsorption with proteinuria; I10 Essential (primary) hypertension; Z12.31 Encounter for screening mammogram for malignant neoplasm of breast
CPT/HCPCS: 36415; 77063; 77067; 80053; 83036; 85027